=== PATIENT | male | born 1955 | race Caucasian/White ===

== ENCOUNTER 2024-02-15 12:58 | Day surgery (SDC) | payer OTHER ==
[2024-02-09 12:42] LABS: Absolute Eosinophils 0.2 K/uL (0-0.5); Absolute Lymphocytes (CBC) 1.3 K/uL (0.7-4.9); Absolute Monocytes 0.8 K/uL (0.1-1.3); Absolute Neutrophil 5.4 K/uL (1.8-8.0); Basophils % 0.4 % (0-1.3); Hematocrit 37.4 % (39.6-49.0); Hemoglobin 12.4 g/dL (13.6-17.9); MCH 32.7 pg (27.0-35.0); MCHC 33.1 g/dL (32.0-36.0); MCV 98.8 fL (80-100); MPV 9.1 fL (7.6-11.3); Monocytes % 10.4 % (3.3-12.3); Neutrophils % 69.2 % (41.7-73.7); Platelets 474 thou/uL (152-406); RBC Red Blood Cell Count 3.78 M/uL (4.33-5.43)
--- NOTE | 2024-02-09 12:43 | RAD REPORT ---
EXAM DESCRIPTION: RAD - Chest Pa And Lat (2 Views) - 02/09/2024 12:32 pm CLINICAL HISTORY: pre-op, hypertension, diabetes COMPARISON: Chest Pa And Lat (2 Views) dated 10/24/2021 FINDINGS: Lines: None. Lungs: No evidence of edema or pneumonia. Pleural: Pleural versus extrapleural thickening along the left lateral lung is unchanged. Cardiac: The heart size is within normal limits. Mediastinum: Within normal limits. Bones: No acute fractures. Remote left-sided rib fractures . Other: None IMPRESSION: No acute cardiopulmonary disease. Pleural versus extrapleural thickening along the left lateral lung base is unchanged which may be secondary to remote trauma. Remote left-sided rib fractur es noted.
[2024-02-09 13:00] LABS: PTT, Activated Partial Thromb 32.2 SECONDS (24.3-36.9); Protime INR 1.07
--- NOTE | 2024-02-10 13:17 | EKG ---
Test Date: 2024-02-09 Test Time: 12:23:54 Service Attendant [employer]: VICKY MEASUREMENT RESULTS: Intervals: Rate: 48 ID: [id number] QRSD: 110 QT: 498 QTc: 444 [place]: P: 15 ID: [id number] QRS: 102 T: 8 INTERPRETIVE STATEMENTS: Marked sinus bradycardia Rightward axis Septal infarct, age undetermined Abnormal ECG Compared to ECG 08/15/1993 06:39:00 Right-axis deviation now present Myocardial infarct finding still present Electronically Signed On 02-10-24 13:14:44 CDT by Apolinar Rubalcava
[2024-02-15] MEDS ORDERED: NA CHLORIDE 0.9% 500 ML ONE (13:18)
[2024-02-15] MEDS ORDERED: MIDAZOLAM HCL 2 MG/2 ML INJ ONE (13:48)
[2024-02-15] MEDS ORDERED: VERAPAMIL HCL 10 MG/4 ML VIAL IV ONE (13:48)
[2024-02-15] MEDS ORDERED: TICAGRELOR 90 MG TABLET PO ONE (13:49)
[2024-02-15] MEDS ORDERED: FENTANYL CITR 100 MCG/2 ML ONE (13:49)
[2024-02-15] MEDS ORDERED: HEPARIN 10,000 UNIT/10 ML VIAL IV ONE (13:49)
[2024-02-15] MEDS ORDERED: HEPARIN 5000 UNIT/ML 1 ML VIAL ONE (13:49)
[2024-02-15] MEDS ORDERED: ATROPINE SULF 1 MG/10 ML SYR IV ONE (13:49)
[2024-02-15] MEDS ORDERED: CLOPIDOGREL 75 MG TABLET ONE (13:50)
[2024-02-15] MEDS ORDERED: LIDOCAINE 1% 20 ML MDV ONE (13:50)
[2024-02-15] MEDS ORDERED: ASPIRIN 325 MG TAB ONE (13:50)
[2024-02-15] MEDS ORDERED: REGADENOSON 0.4 MG/5 ML SYR IV ONE (14:26)
[2024-02-15 17:36] VITALS: BP 152/75; O2SAT 98
--- NOTE | 2024-02-15 22:37 | OP ---
Date of Procedure: 02/15/2024 Surgeon: LUDY SILVA Procedures Performed: 1.Selective coronary angiogram. 2.Left heart catheterization. 3.Fractional flow reserve of ostial left anterior descending, which was not significant at 0.98. Indication: Chest pain with abnormal stress test. Access: Right radial artery 6-[place] closed with TR band. Complications: None. Bleedin mL. Anesthesia: Total sedation time is 50 minutes, used fentanyl and versed. Description Of Procedure: After risks, benefits, and alternatives were explained, the patient agreed to the procedure and signed informed consent. The patient was brought in the cardiac catheterizatio n, laboratory, prepped and draped in sterile fashion. Then, I accessed the right radial artery using pediatric micropuncture kit, placed a 6-[place] slender sheath, took 5-[place] Hayes 4 catheter into t he aortic root over a J-wire, engaged left main and took standard views and then RCA, took standard v iews and catheter was pushed over the wire into the LV. Measured the LVEDP. Pullback did not record any gradient. Then, I gave systemic heparin to assure his level above 250 and then took FFR wire to the aortic root, pressures were equalized and then wire was advanced into the LAD passing the area o f stenosis and then did FFR using Lexiscan. It was then -0.98. Pulling the wire back, there was no drift. Final angiogram was satisfactory. No complications. I removed the catheter and the wire, th e catheter and sheath, and placed TR band with good hemostasis. Findings: 1.Left main: Large and normal. 2.LAD: Ostial to proximal 40% stenosis with FFR of 0.98. The large vessel mid focal 30% diagonal b ranches are normal. 3.Left circumflex is moderate-sized vessel, normal. 4.RCA: Large and dominant, proximal 40%, . Rest of the RCA is normal. 5.LVEDP is elevated at 18 mmHg. Conclusion: 1.Moderate coronary artery disease. 2.Elevated LVEDP. Recommendation: Medical management. SR/MODL Voice ID: [id number] Report ID: [id number]
== END 2024-02-15 17:37 | disposition home or self-care (01) ==
LOC: CCL 12:58
PROVIDERS: ATTEND Internal Medicine
DX: I25.10 Atherosclerotic heart disease of native coronary artery without angina pectoris (principal); I70.223 Atherosclerosis of native arteries of extremities with rest pain, bilateral legs; I65.23 Occlusion and stenosis of bilateral carotid arteries; I10 Essential (primary) hypertension; E11.9 Type 2 diabetes mellitus without complications; E78.2 Mixed hyperlipidemia; Z87.891 Personal history of nicotine dependence; Z79.82 Long term (current) use of aspirin; Z79.899 Other long term (current) drug therapy
CPT/HCPCS: 93005; 85025; 80048; 36415; 85610; 82947; 85347; 85730; 71046; 93458; 76937; 93571; C1893; Q9967; J1644; J2785; J2001; J2250; J3010; J7040; C1769; 99152; 99153; J0461